=== PATIENT | male | born 2000 | race African-American/Black ===

== ENCOUNTER 2023-05-20 21:55 | Emergency (ER) | payer OTHER, SELFPAY ==
[2023-05-20 21:57] VITALS: BP 135/69; PULSE 79; RESP 17; TEMP 36.5; O2SAT 96
[2023-05-20] MEDS: ALBUTEROL SULFATE NEB 2.5 MG/3 ML INH INHALATION (22:31)
[2023-05-20 22:33] VITALS: PULSE 81; RESP 20
--- NOTE | 2023-05-20 22:38 | ED.GENADULT ---
HPI - General Adult General Chief complaint: Shortness of Breath/Dyspnea Stated complaint: asthma Time Seen by Provider: 05/20/23 22:00 History of Present Illness HPI narrative: 23-year-old male presented emerged department for evaluation of worsening asthma. Patient does have a prior history of asthma but does continue to smoke marijuana. Patient states that he had some worsening shortness of breath over the course of the day but ran out of his inhaler. Review of Systems Review of Systems: All systems reviewed & are unremarkable except as noted in HPI and below Exam Narrative: APPEARANCE: Well appearing, no pain, no distress, well-nourished. HEAD: normocephalic, atraumatic. EYES: PERRLA/EOMI, conjunctivae clear. NOSE: Normal no drainage EARS:TMS clear with good light reflex. THROAT: Pharynx clear, no exudate. NECK: Supple. No adenopathy, no masses. RESPIRATORY: Expiratory wheeze CARDIOVASCULAR: Regular rate and rhythm without murmurs rubs or gallops. ABDOMINAL: Soft, nontender, nondistended, normal bowel sounds MUSCULOSKELETAL: Moves all extremities. Strength/ROM intact, No edema, No calf tenderness. NEURO: Alert. Cranial nerves II through XII intact. Grossly intact SKIN: Warm, dry. Normal Color Course Course Emergency Course: 23-year-old male presented ED for evaluation of expiratory wheeze. Patient was treated with albuterol in the ED. Patient was provided a refill on his albuterol inhaler. Patient was encouraged to quit smoking. Vital Signs Vital signs: Vital Signs Temperature 97.7 F 05/20/23 21:57 Pulse Rate 79 05/20/23 21:57 Respiratory Rate 17 05/20/23 21:57 Blood Pressure 135/69 05/20/23 21:57 Pulse Oximetry 96 05/20/23 21:57 Oxygen Delivery Room Air 05/20/23 21:57 Temperature 97.7 F 05/20/23 21:57 Pulse Rate 76 05/20/23 22:56 Respiratory Rate 15 05/20/23 22:56 Blood Pressure 132/74 05/20/23 22:56 Pulse Oximetry 96 05/20/23 22:56 Oxygen Delivery Room Air 05/20/23 21:57 Medical Decision Making Differential Diagnosis Differential Diagnosis: Pneumonia, COPD, asthma Vital Signs Vital Signs: Vital Signs Temperature 97.7 F 05/20/23 21:57 Pulse Rate 79 05/20/23 21:57 Respiratory Rate 17 05/20/23 21:57 Blood Pressure 135/69 05/20/23 21:57 Pulse Oximetry 96 05/20/23 21:57 Oxygen Delivery Room Air 05/20/23 21:57 Temperature 97.7 F 05/20/23 21:57 Pulse Rate 76 05/20/23 22:56 Respiratory Rate 15 05/20/23 22:56 Blood Pressure 132/74 05/20/23 22:56 Pulse Oximetry 96 05/20/23 22:56 Oxygen Delivery Room Air 05/20/23 21:57 Discharge Plan Discharge Clinical Impression: Asthma Patient Disposition: Home, Self-Care Condition: Stable Instructions: Antibiotic Form, Asthma (ED) Additional Instructions: Prednisone as directed for the next 5 days. Albuterol inhaler as needed for shortness of breath and wheeze. Quit smoking. Have close follow-up with your primary care physician. Prescriptions: New prednisone 50 mg tablet 50 mg PO DAILY 5 Days Qty: 5 0RF albuterol sulfate 90 mcg/actuation HFA aerosol inhaler 1 inh inhalation QID PRN (Reason: shortness of breath or wheezing) Qty: 6.7 0RF Follow-up/Referrals: PHYSICIAN NOT ON STAFF,NONSTAFF [Primary Care Provider] -
[2023-05-20 22:47] VITALS: PULSE 84; RESP 20
[2023-05-20 22:56] VITALS: BP 132/74; PULSE 76; RESP 15; O2SAT 96
== END 2023-05-20 22:58 | disposition home or self-care (01) ==
PROVIDERS: Emergency Provider Emergency Medicine
DX: J45.909 Unspecified asthma, uncomplicated (principal)
CPT/HCPCS: 94640; 99283

== ENCOUNTER 2023-06-15 20:03 | Emergency (ER) | payer OTHER, SELFPAY ==
[2023-06-15 20:05] VITALS: BP 136/75; PULSE 91; RESP 16; TEMP 36.7; O2SAT 98
--- NOTE | 2023-06-15 21:25 | ED.GENADULT ---
HPI - General Adult General Chief complaint: Unspecified Stated complaint: STD screen Time Seen by Provider: 06/15/23 20:18 Source: patient Mode of arrival: ambulatory Limitations: no limitations History of Present Illness HPI narrative: This is a 23-year-old male who presents to the ED with concern for possible STD. He is here for screening exam. He does not currently have any symptoms but was told by her partner to get tested. He is unsure of what the tested for. States he is feeling fine otherwise but would like testing for both HIV and syphilis as well. Review of Systems Review of Systems: All systems as dictated in HPI Exam Narrative: GENERAL: Well-appearing, well-nourished, and in no acute distress. HEAD: Normocephalic, atraumatic. EYES: PERRLA and EOMI. ENT: Nares clear, no rhinorrhea or epistaxis. Mucous membranes moist. Oropharynx without tonsillar hypertrophy exudate or other lesions. NECK: Supple. No adenopathy or masses. CHEST: No respiratory distress. Clear to auscultation. No wheezes rales or rhonchi HEART: Regular rate and rhythm. No murmur heard. Normal peripheral pulses. ABDOMEN: Soft, nontender, nondistended, normal active bowel sounds. MSK: Normal range of motion. No edema. SKIN: Warm, dry, no rash. NEURO: Alert and oriented x3. No focal deficits. PSYCH: Normal mood and affect. Course Vital Signs Vital signs: Vital Signs Temperature 98.0 F 06/15/23 20:05 Pulse Rate 91 06/15/23 20:05 Respiratory Rate 16 06/15/23 20:05 Blood Pressure 136/75 06/15/23 20:05 Pulse Oximetry 98 06/15/23 20:05 Oxygen Delivery Room Air 06/15/23 20:05 Temperature 98.0 F 06/15/23 20:05 Pulse Rate 91 06/15/23 20:05 Respiratory Rate 16 06/15/23 20:05 Blood Pressure 136/75 06/15/23 20:05 Pulse Oximetry 98 06/15/23 20:05 Oxygen Delivery Room Air 06/15/23 20:05 Medical Decision Making MDM Narrative Medical decision making narrative: This is a 23-year-old male presenting to the ED for STD screening as he was told he should get tested. Unsure of what his partner may have had. Vitals are normal. Exam is benign. He is not seeking empiric treatment but rather just a screening test. Gonorrhea and Chlamydia are negative. HIV initial screen is negative. RPR was sent but instructed that he needs to follow-up with his family doctor to continue with results for this. Pt will be discharged in stable condition. Return precautions given and supportive measures discussed. Pt is understanding and agreeable with plan for discharge and follow-up with PCP. Vital Signs Vital Signs: Vital Signs Temperature 98.0 F 06/15/23 20:05 Pulse Rate 91 06/15/23 20:05 Respiratory Rate 16 06/15/23 20:05 Blood Pressure 136/75 06/15/23 20:05 Pulse Oximetry 98 06/15/23 20:05 Oxygen Delivery Room Air 06/15/23 20:05 Temperature 98.0 F 06/15/23 20:05 Pulse Rate 91 06/15/23 20:05 Respiratory Rate 16 06/15/23 20:05 Blood Pressure 136/75 06/15/23 20:05 Pulse Oximetry 98 06/15/23 20:05 Oxygen Delivery Room Air 06/15/23 20:05 Lab Data Labs: Lab Results 06/15/23 06/15/23 Range/Units 21:26 21:59 RPR Pending C. trachomatis (PCR) Not detected (NOT DETECTE) HIV 1&2 Ab/P24 Ag 4thGn Negative (Negative) N. gonorrhoeae (PCR) Not detected (NOT DETECTE) Discharge Plan Discharge Clinical Impression: Screen for STD (sexually transmitted disease) Patient Disposition: Home, Self-Care Condition: Stable Instructions: Antibiotic Form Additional Instructions: Your tests for HIV and gonorrhea and Chlamydia are all negative. Please follow-up with your primary care physician regarding the syphilis lab. If you have any new or worsening symptoms please return to the ER or seek medical attention from your primary care doctor. Prescriptions: No Action prednisone 50 mg tablet 50 mg PO DAILY 5 Days Qty: 5 0RF a
[2023-06-15 22:53] LABS: HIV 1/2 Ab P24 Ag Result Negative (Negative)
[2023-06-15 23:27] LABS: Chlamydia trachomatis NOT DETECTED (NOT DETECTE); Neisseria gonorrhoeae PCR NOT DETECTED (NOT DETECTE)
[2023-06-16 17:00] LABS: Rapid Plasma Reagin Non-Reactive (NonReactive)
== END 2023-06-16 | disposition home or self-care (01) ==
PROVIDERS: Emergency Provider Physician Assistant
DX: Z11.3 Encounter for screening for infections with a predominantly sexual mode of transmission (principal)
CPT/HCPCS: 36415; 86592; 86703; 87491; 87591; 99283; G0432

== ENCOUNTER 2023-07-03 08:12 | Emergency (ER) | payer OTHER, SELFPAY ==
[2023-07-03 08:12] VITALS: BP 127/67; PULSE 79; RESP 16; TEMP 36.6; O2SAT 100
[2023-07-03 08:50] LABS: Appearance Urine Clear (Clear); Bacteria Urine None Seen /hpf; Bilirubin Urine Negative (Negative); Blood Urine Negative (Negative); Color Urine Yellow (Yellow); Glucose Urine UA Negative (Negative); Ketones Urine Negative (Negative); Leukocyte Esterase Ur Negative LEU/UL (Negative); Nitrate Urine Negative (Negative); Non Pathogenic Casts 0-2; Protein Urine Trace mg/dL (Negative); RBC Urine 0-2 /hpf (0-2); Specific Grav Ur 1.022 (1.001-1.035); Squamous Epithelial Cell Urine None seen /hpf (Few); WBC Urine 0-5 /hpf; pH Urine 7.5 (5.0-9.0)
[2023-07-03 08:53] LABS: Add Urine Microscopic? YES
[2023-07-03] MEDS: ONDANSETRON HCL ODT 4 MG TABLET PO (09:39)
[2023-07-03] MEDS: LIDOCAINE HCL 1% LOCAL INJ 10 ML VIAL (09:39)
[2023-07-03] MEDS: cefTRIAXone 1 GM VIAL 0.5 GM IM (09:39)
[2023-07-03] MEDS: metroNIDAZOLE 500 MG TABLET 2000 MG PO (09:40)
[2023-07-03] MEDS: AZITHROMYCIN 250 MG TABLET 1000 MG PO (09:40)
[2023-07-03 09:47] LABS: Trichomonas Vag PCR NOT DETECTED (NOT DETECTE)
--- NOTE | 2023-07-03 09:55 | ED.GENADULT ---
HPI - General Adult General Chief complaint: Urogenital-Male Stated complaint: std Time Seen by Provider: 07/03/23 08:57 History of Present Illness HPI narrative: Makayla Michael is a 23 y/o male who presents with reports of being exposed to STI's a few days ago. He states that after he had sexual intercourse the partner told him that they had trich and maybe some other sexual infections. He denies any penile discharge/ dysuria/fever/chills. He states he has a scratch on his penis that feels a little sore. Related Data Allergies Allergy/AdvReac Type Severity Reaction Status Date / Time No Known Allergies Allergy Verified 07/03/23 08:15 Course Vital Signs Vital signs: Vital Signs Temperature 36.6 C 07/03/23 08:12 Pulse Rate 79 07/03/23 08:12 Respiratory Rate 16 07/03/23 08:12 Blood Pressure 127/67 07/03/23 08:12 Pulse Oximetry 100 07/03/23 08:12 Temperature 36.6 C 07/03/23 08:12 Pulse Rate 79 07/03/23 08:12 Respiratory Rate 16 07/03/23 08:12 Blood Pressure 127/67 07/03/23 08:12 Pulse Oximetry 100 07/03/23 08:12 Medical Decision Making MDM Narrative Medical decision making narrative: Pt presents with reports of being told by his sexual partner that he was exposed after sex to trich/ and other STI's he is no longer with this partner and comes here concerned and wanting treatment and tested Denies dysuria/ hematuria/ denies any abdoiminal pain He has a small superficial scratch that is liner to the dorsum aspect of his penis that is about less them 0.5 cm in length non vesicular no rash - he states it is painful with touch - does not appear to be a chancer or herpes Educated pt on both of those, and if either appear he will need to return to the ED Today pt will be treated for Gonorreha/ chlamydia and trich as requested D/C home with strict return precuatoins and counseled pt on safe sex practice Patient verbalizes understanding and all questions answered. Medical Records Medical records reviewed: Yes I reviewed the external patient's medical records. Vital Signs Vital Signs: Vital Signs Temperature 36.6 C 07/03/23 08:12 Pulse Rate 79 07/03/23 08:12 Respiratory Rate 16 07/03/23 08:12 Blood Pressure 127/67 07/03/23 08:12 Pulse Oximetry 100 07/03/23 08:12 Temperature 36.6 C 07/03/23 08:12 Pulse Rate 79 07/03/23 08:12 Respiratory Rate 16 07/03/23 08:12 Blood Pressure 127/67 07/03/23 08:12 Pulse Oximetry 100 07/03/23 08:12 Vitals reviewed by me. Lab Data Lab results reviewed: Yes I reviewed the patient's lab results. Labs: Lab Results 07/03/23 Range/Units 08:23 Urine Color Yellow (Yellow) Urine Appearance Clear (Clear) Urine pH 7.5 (5.0-9.0) Ur Specific [place] 1.022 (1.001-1.035) Urine Protein Trace (Negative) mg/dL Urine Glucose (UA) Negative (Negative) mg/dL Urine Ketones Negative (Negative) mg/dL Ur Blood (Man) Negative (Negative) Urine Nitrate Negative (Negative) Urine Bilirubin Negative (Negative) Urine Urobilinogen 1.0 (<2.0) mg/dL Leukocyte Esterase Rfl Negative (Negative) ROLDAN/UL Urine RBC 0-2 (0-2) /hpf Urine WBC 0-5 /hpf Ur Squamous Epith Cells None seen (Few) /hpf Urine Bacteria None seen /hpf Urine Casts 0-2 C. trachomatis (PCR) Not detected (NOT DETECTE) N. gonorrhoeae (PCR) Not detected (NOT DETECTE) T. vaginalis (PCR) Not detected (NOT DETECTE) Urine Characteristics Clear Discharge Plan Discharge Clinical Impression: Encounter for assessment of STD exposure, Exposure to sexually transmitted disease (STD) Patient Disposition: Home, Self-Care Condition: Stable Instructions: Antibiotic Form Additional Instructions: Today you were treated for Trichomonias / Gonorrhea / chlamydia You will need to refrain from sex for 10 days to ensure you don't infect any one el
[2023-07-03 10:12] LABS: Chlamydia trachomatis NOT DETECTED (NOT DETECTE); Neisseria gonorrhoeae PCR NOT DETECTED (NOT DETECTE)
== END 2023-07-03 10:19 | disposition home or self-care (01) ==
PROVIDERS: Emergency Medicine; Emergency Provider Nurse Practitioner Family
DX: Z20.2 Contact with and (suspected) exposure to infections with a predominantly sexual mode of transmission (principal)
CPT/HCPCS: 81001; 87491; 87591; 87661; 96372; 99283; A9270; J0696

== ENCOUNTER 2023-10-11 13:42 | Emergency (ER) | payer OTHER, SELFPAY ==
--- NOTE | ~2023-10-11 | XR_ITS ---
EXAMINATION: XR chest 2V Exam Date/Time: 10/11/2023 15:59 CUT OFF [facility] HISTORY: sob, hx asthma Comparison: None. RESULT: Lines, tubes, and devices: None. Lungs and pleura: Clear. Cardiomediastinal silhouette: Normal. Other: No acute osseous or upper abdominal finding. Mild thoracolumbar scoliosis. IMPRESSION: No acute cardiopulmonary process. Reviewed, dictated and finalized at location [facility]. [facility]
[2023-10-11 13:51] VITALS: BP 101/73; PULSE 76; RESP 20; TEMP 36.5; O2SAT 97
--- NOTE | 2023-10-11 15:45 | ED.GENADULT ---
HPI - General Adult General Chief complaint: Recheck/Abnormal Lab/Rx Stated complaint: Asthma exac Time Seen by Provider: 10/11/23 15:43 Source: patient Mode of arrival: ambulatory Limitations: no limitations History of Present Illness HPI narrative: Patient is a 23-year-old male who presents the ED wanting a refill of asthma inhaler. Patient has history of asthma states he ran out of his inhaler 2 days ago. Over the last couple of days, he has had mild shortness of breath. Occasional wheezing. He did try contacting his primary care doctor but was unable to make an appointment until November. He would like a refill of inhaler. He denies any other recent infectious symptoms. Denies fevers, cough, congestion, sore throat, sick contacts, chest pain. Related Data Allergies Allergy/AdvReac Type Severity Reaction Status Date / Time No Known Allergies Allergy Verified 10/11/23 13:43 Review of Systems Review of Systems: CONSTITUTIONAL: Denies fever, chills, or sweats. CARDIOVASCULAR: Denies chest pain. RESPIRATORY: See HPI. All systems reviewed & are unremarkable except as noted in HPI and below Exam Narrative: GENERAL: Well appearing, thin, non-toxic, in no acute distress. HEAD: Normocephalic, atraumatic. RESPIRATORY: Airway patent, respirations nonlabored. Very scant intermittently wheezing. CARDIOVASCULAR: Regular rate and rhythm MUSCULOSKELETAL: Moves all extremities. No gross deformities. SKIN: Warm, dry, normal color. NEURO: A&O X3. Speech clear. PSYCHIATRIC: Appropriate mood and affect. Normal interaction. Course Vital Signs Vital signs: Vital Signs Temperature 97.7 F 10/11/23 13:51 Pulse Rate 76 10/11/23 13:51 Respiratory Rate 20 10/11/23 13:51 Blood Pressure 101/73 10/11/23 13:51 Pulse Oximetry 97 10/11/23 13:51 Oxygen Delivery Room Air 10/11/23 13:51 Temperature 97.7 F 10/11/23 13:51 Pulse Rate 76 10/11/23 13:51 Respiratory Rate 20 10/11/23 13:51 Blood Pressure 101/73 10/11/23 13:51 Pulse Oximetry 97 10/11/23 13:51 Oxygen Delivery Room Air 10/11/23 13:51 Medical Decision Making MDM Narrative Medical decision making narrative: Patient reporting mild shortness breath over the last few days, wanting refill of asthma inhaler. Denies any recent infectious symptoms. Vitals are stable. Patient in no acute distress. Exam unremarkable. No indication for nebulizer treatment at this time. Chest x-ray clear. Patient given refill of inhaler, advised to follow-up closely with primary care doctor for further evaluation. Given return precautions. Discharged in stable condition. Medical Records Medical records reviewed: Yes I reviewed the external patient's medical records. Vital Signs Vital Signs: Vital Signs Temperature 97.7 F 10/11/23 13:51 Pulse Rate 76 10/11/23 13:51 Respiratory Rate 20 10/11/23 13:51 Blood Pressure 101/73 10/11/23 13:51 Pulse Oximetry 97 10/11/23 13:51 Oxygen Delivery Room Air 10/11/23 13:51 Temperature 97.7 F 10/11/23 13:51 Pulse Rate 76 10/11/23 13:51 Respiratory Rate 20 10/11/23 13:51 Blood Pressure 101/73 10/11/23 13:51 Pulse Oximetry 97 10/11/23 13:51 Oxygen Delivery Room Air 10/11/23 13:51 Imaging Data Attestation: I personally reviewed and interpreted this imaging study as follows: Radiologist's impression: ITS Impressions Chest X-Ray 10/11/23 16:11 IMPRESSION: No acute cardiopulmonary process. Discharge Plan Discharge Clinical Impression: Encounter for medication refill Asthma Qualifiers: Asthma severity: unspecified severity Asthma persistence: unspecified Asthma complication type: unspecified Qualified Code(s): J45.909 - Unspecified asthma, uncomplicated Patient Disposition: Home, Self-Care Condition: Stable Instructions: Antibiotic Form, Asthma (ED), Wheezing (ED) Additional Instructions: Continue to utilize albuterol inhaler
[2023-10-11 16:41] VITALS: BP 112/81; PULSE 87; RESP 16; TEMP 36.1; O2SAT 100
== END 2023-10-11 16:44 | disposition home or self-care (01) ==
LOC: ANHED 16:15
PROVIDERS: Emergency Provider Physician Assistant
DX: J45.909 Unspecified asthma, uncomplicated (principal); Z76.0 Encounter for issue of repeat prescription
CPT/HCPCS: 71046; 99283

== ENCOUNTER 2023-11-11 07:23 | Emergency (ER) | payer OTHER, SELFPAY ==
[2023-11-11 07:28] VITALS: BP 146/85; PULSE 101; RESP 14; TEMP 36.7; O2SAT 100
[2023-11-11] MEDS: DOXYCYCLINE HYCLATE 100 MG TABLET PO (07:48)
[2023-11-11] MEDS: cefTRIAXone 1 GM VIAL 0.5 GM IM (07:49)
[2023-11-11] MEDS: LIDOCAINE HCL 1% LOCAL INJ 10 ML VIAL (07:52)
[2023-11-11 07:58] VITALS: BP 131/80; PULSE 93; RESP 14; TEMP 36.6; O2SAT 100
[2023-11-11 08:26] LABS: Appearance Urine Clear (Clear); Bacteria Urine None Seen /hpf; Bilirubin Urine Negative (Negative); Blood Urine Negative (Negative); Color Urine Yellow (Yellow); Glucose Urine UA Negative (Negative); Ketones Urine Negative (Negative); Leukocyte Esterase Ur Negative LEU/UL (Negative); Nitrate Urine Negative (Negative); Non Pathogenic Casts 0-2; Protein Urine Trace mg/dL (Negative); RBC Urine 0-2 /hpf (0-2); Specific Grav Ur 1.027 (1.001-1.035); Squamous Epithelial Cell Urine None Seen /hpf (Few); Urobilinogen Urine 0.2 mg/dL (<2.0)
[2023-11-11 08:33] LABS: Add Urine Microscopic? YES
[2023-11-11 09:25] LABS: Chlamydia trachomatis NOT DETECTED (NOT DETECTE); Neisseria gonorrhoeae PCR NOT DETECTED (NOT DETECTE)
--- NOTE | 2023-11-11 14:27 | ED.RECABL ---
HPI - Recheck/Abnormal Lab/Rx General Chief Complaint: Recheck/Abnormal Lab/Rx Stated Complaint: STD screen Time Seen by Provider: 11/11/23 07:36 History of Present Illness HPI narrative: Patient presenting here after finding out his girlfriend has an STD. He has some dysuria but no discharge Related Data Allergies Allergy/AdvReac Type Severity Reaction Status Date / Time No Known Allergies Allergy Verified 11/11/23 07:27 Review of Systems Review of Systems: All systems reviewed & are unremarkable except as noted in HPI and below Exam Narrative: EXAMINATION OF ORGAN SYSTEMS/BODY AREAS: Constitutional: Vital signs per nursing GENERAL:[No acute distress, non-toxic appearing.] HEAD: Normal with no signs of head trauma. EYES: EOMI, conjunctiva normal ENT: Hearing grossly intact LUNGS: Nonlabored breathing. HEART: [Regular rate and rhythm] ABD: [Soft], nontender to palpation EXT: Normal range of motion SKIN: [No rashes or lesions.] NEURO: [Alert and oriented x 3. No gross focal sensory or strength deficits.] PSYCH: Normal affect Course Vital Signs Vital signs: Vital Signs Temperature 98.1 F 11/11/23 07:28 Pulse Rate 101 H 11/11/23 07:28 Respiratory Rate 14 11/11/23 07:28 Blood Pressure 146/85 H 11/11/23 07:28 Pulse Oximetry 100 11/11/23 07:28 Oxygen Delivery Room Air 11/11/23 07:28 Temperature 98 F 11/11/23 07:58 Pulse Rate 93 11/11/23 07:58 Respiratory Rate 14 11/11/23 07:58 Blood Pressure 131/80 11/11/23 07:58 Pulse Oximetry 100 11/11/23 07:58 Oxygen Delivery Room Air 11/11/23 07:28 MDM - Recheck/Abnormal Lab/Rx MDM Narrative Medical decision making narrative: [23]-year-old patient presents to the emergency department for STD testing after exposure was confirmed Denies any systemic symptoms. Declines genital exam. GC/CT were sent for testing. Patient was treated empirically with ceftriaxone 500 mg IM and doxycycline 100mg, they are counseled on safe sex practices and should follow up regarding results, and can return to ER for any worsening symptoms. Lab Data Labs: Lab Results 11/11/23 Range/Units 07:51 Urine Color Yellow (Yellow) Urine Appearance Clear (Clear) Urine pH 6.0 (5.0-9.0) Ur Specific [place] 1.027 (1.001-1.035) Urine Protein Trace (Negative) mg/dL Urine Glucose (UA) Negative (Negative) mg/dL Urine Ketones Negative (Negative) mg/dL Ur Blood (Man) Negative (Negative) Urine Nitrate Negative (Negative) Urine Bilirubin Negative (Negative) Urine Urobilinogen 0.2 (<2.0) mg/dL Leukocyte Esterase Rfl Negative (Negative) ROLDAN/UL Urine RBC 0-2 (0-2) /hpf Urine WBC 6-10 H (0-3) /hpf Ur Squamous Epith Cells None seen (Few) /hpf Urine Bacteria None seen /hpf Urine Casts 0-2 C. trachomatis (PCR) Not detected (NOT DETECTE) N. gonorrhoeae (PCR) Not detected (NOT DETECTE) Urine Characteristics Clear Discharge Plan Discharge Clinical Impression: Exposure to sexually transmitted disease (STD) Patient Disposition: Home, Self-Care Condition: Stable Instructions: Antibiotic Form, Sexually Transmitted Diseases (ED), Safe Sex Practices (ED) Prescriptions: New doxycycline hyclate 100 mg capsule 100 mg PO Q12H 7 Days Qty: 14 0RF No Action albuterol sulfate 90 mcg/actuation HFA aerosol inhaler 2 puff inhalation QID PRN (Reason: shortness of breath or wheezing) Qty: 6.7 0RF Follow-up/Referrals: Marcos Schaeffer MD [Physician] - 2 Days UNKNOWN,DOCTOR [Primary Care Provider] -
== END 2023-11-11 08:00 | disposition home or self-care (01) ==
LOC: ANHED 07:44
PROVIDERS: Emergency Provider Emergency Medicine
DX: R30.0 Dysuria (principal); Z20.2 Contact with and (suspected) exposure to infections with a predominantly sexual mode of transmission
CPT/HCPCS: 81001; 87086; 87491; 87591; 96372; 99283; A9270; J0696